=== PATIENT | female | born 1945 | race Caucasian/White ===

== ENCOUNTER 2016-12-03 11:40 | Inpatient (IN) | payer MEDICARE, BC ==
[~2016-12-03 11:40] MED LIST: ASPIRIN EC81 MG PO; CALCIUM 500 +1 EA11 PO; FISH OIL 1,0001 CA PO; GLUCOPHAGE500 M3 PO; GLUCOPHAGE500 MG PO; LEVAQUIN750 M1 PO; LEXAPRO20 M2 PO; LISINOPRIL5 MG PO; LOSARTAN-HCTZ1 EAC4 PO; MELOXICAM15 M1 PO; MUCINEX600 M1 PO; NEULASTA6 MG/0.6 M SQ; PREDNISONE10 M1 PO; PROAIR RESPICL90 MCG INH; PROTONIX40 M2 PO
[2016-12-03 12:47] LABS: BASO % 0.1 % (0-2); HCT-HEMATOCRIT 31.4 % (34.0-49.0); HGB-HEMOGLOBIN 10.6 gm/dl (12.0-15.5); IMMATURE GRANULOCYTES ABSOLUTE 0.06 tho/cmm (0-0.03); IMMATURE GRANULOCYTES PERCENT 0.3 % (0-0.3); LYMPH % 62.8 % (20-45); MCH (MEAN CORPUSCULAR HGB) 28.6 pg (28.0-32.0); MCHC MEAN CORPUSCULAR HGB CONC 33.8 % (32.0-36.0); MCV (MEAN CELL VOLUME) 84.6 fl (82.0-96.0); MEAN PLATELET VOLUME 9.3 cmc (9.4-12.4); MONO % 6.5 % (0-12); NEUTROPHIL ABSOLUTE COUNT 5.5 tho/cmm (1.6-8.0); NEUTROPHIL-AUTOMATED 5.5 tho/cmm (1.6-8.0); NEUTROPHILS % 30.3 % (40-80); PLATELET COUNT 89 tho/cmm (150-450); RED BLOOD COUNT 3.71 mil/cmm (4.00-5.20); RED CELL DISTRIBUTION WIDTH 15.2 % (12.4-16.4); WHITE BLOOD COUNT 18.3 tho/cmm (4.0-10.0)
[2016-12-03 12:57] LABS: LYMPH ABSOLUTE COUNT 11.5 tho/cmm (0.8-4.5); MONOCYTE ABSOLUTE COUNT 1.2 tho/cmm (0.0-1.2)
[2016-12-03 13:00] LABS: ANION GAP 17 mmol/L (0-20); BLOOD UREA NITROGEN 23 mg/dl (6-24); CALCIUM 8.6 mg/dl (8.5-10.5); CARBON DIOXIDE-VENOUS 21 mmol/L (22-32); CHLORIDE 102 mmol/l (96-110); CREATININE 1.29 mg/dl (0.50-1.10); GLUCOSE 211 mg/dL (70-110); POTASSIUM 3.8 mmol/L (3.7-5.1); SODIUM 136 mmol/L (135-145); eGFR VALUE FOR BLACK 48 mL/Min
[2016-12-03 13:38] LABS: URINE BILIRUBIN NEGATIVE (NEG); URINE BLOOD LARGE (NEG); URINE GLUCOSE (UA) NEGATIVE (NEG); URINE KETONE NEGATIVE (NEG); URINE LEUKOCYTE ESTERASE NEGATIVE (NEG); URINE NITRITE NEGATIVE (NEG); URINE PROTEIN MODERATE (NEG); URINE SPECIFIC GRAVITY 1.025 (1.003-1.030)
[2016-12-03 13:39] LABS: URINE APPEARANCE CLEAR; URINE COLOR DARK YELLOW
[2016-12-03 13:47] LABS: URINE BACTERIA 1+; URINE WBC 0-2 /[HPF] (0-5)
[2016-12-03 17:35] LABS: INR 1.7 INR (0.9-1.1); PROTHROMBIN TIME 19.8 SECONDS (9.0-13.6)
[2016-12-03 21:51] LABS: INR 1.6 INR (0.9-1.1); PROTHROMBIN TIME 19.1 SECONDS (9.0-13.6)
[2016-12-04 03:44] LABS: INR 1.4 INR (0.9-1.1)
[2016-12-04 09:30] LABS: BASO % 0.1 % (0-2); EOS % 0.3 % (0-7); HCT-HEMATOCRIT 28.5 % (34.0-49.0); HGB-HEMOGLOBIN 9.1 gm/dl (12.0-15.5); LYMPH % 65.7 % (20-45); MCH (MEAN CORPUSCULAR HGB) 27.7 pg (28.0-32.0); MCHC MEAN CORPUSCULAR HGB CONC 31.9 % (32.0-36.0); MCV (MEAN CELL VOLUME) 86.9 fl (82.0-96.0); MONO % 8.4 % (0-12); NEUTROPHIL ABSOLUTE COUNT 3.6 tho/cmm (1.6-8.0); NEUTROPHIL-AUTOMATED 3.6 tho/cmm (1.6-8.0); NEUTROPHILS % 25.5 % (40-80); PLATELET COUNT 95 tho/cmm (150-450); RED BLOOD COUNT 3.28 mil/cmm (4.00-5.20)
[2016-12-04 09:31] LABS: LYMPH ABSOLUTE COUNT 9.2 tho/cmm (0.8-4.5); MONOCYTE ABSOLUTE COUNT 1.2 tho/cmm (0.0-1.2)
[2016-12-04 09:39] LABS: ANION GAP 12 mmol/L (0-20); BLOOD UREA NITROGEN 16 mg/dl (6-24); CALCIUM 8.1 mg/dl (8.5-10.5); CARBON DIOXIDE-VENOUS 22 mmol/L (22-32); CHLORIDE 111 mmol/l (96-110); CREATININE 0.96 mg/dl (0.50-1.10); GLUCOSE 126 mg/dL (70-110); MAGNESIUM 2.2 mg/dl (1.3-2.6); PHOSPHOROUS 2.2 mg/dl (2.5-4.9); POTASSIUM 3.8 mmol/L (3.7-5.1); SODIUM 141 mmol/L (135-145); eGFR VALUE FOR BLACK 69 mL/Min
[2016-12-04 10:15] LABS: WBC MORPHOLOGY VARIANT LYMPHS
[2016-12-04] MEDS ORDERED: ZOVIRAX200 M1 PO (11:25)
[2016-12-04] MEDS ORDERED: CALCIUM CARBON600 M2 PO (11:25)
[2016-12-04] MEDS ORDERED: PROAIR RESPICL90 MCG INH (11:26)
[2016-12-04] MEDS ORDERED: CALCIUM WITH V1 EAC2 PO (11:26)
[2016-12-05 06:18] LABS: BASO % 0.1 % (0-2); EOS % 0.7 % (0-7); HCT-HEMATOCRIT 29.7 % (34.0-49.0); HGB-HEMOGLOBIN 9.6 gm/dl (12.0-15.5); IMMATURE GRANULOCYTES ABSOLUTE 0.02 tho/cmm (0-0.03); IMMATURE GRANULOCYTES PERCENT 0.2 % (0-0.3); LYMPH % 67.7 % (20-45); MCH (MEAN CORPUSCULAR HGB) 27.7 pg (28.0-32.0); MCHC MEAN CORPUSCULAR HGB CONC 32.3 % (32.0-36.0); MCV (MEAN CELL VOLUME) 85.6 fl (82.0-96.0); MEAN PLATELET VOLUME 9.7 cmc (9.4-12.4); MONO % 7.4 % (0-12); NEUTROPHIL ABSOLUTE COUNT 2.6 tho/cmm (1.6-8.0); NEUTROPHIL-AUTOMATED 2.6 tho/cmm (1.6-8.0); NEUTROPHILS % 23.9 % (40-80); PLATELET COUNT 96 tho/cmm (150-450); RED BLOOD COUNT 3.47 mil/cmm (4.00-5.20); RED CELL DISTRIBUTION WIDTH 15.5 % (12.4-16.4); WHITE BLOOD COUNT 10.7 tho/cmm (4.0-10.0)
[2016-12-05 06:20] LABS: ANION GAP 15 mmol/L (0-20); BLOOD UREA NITROGEN 17 mg/dl (6-24); CALCIUM 8.4 mg/dl (8.5-10.5); CARBON DIOXIDE-VENOUS 21 mmol/L (22-32); CHLORIDE 109 mmol/l (96-110); CREATININE 0.96 mg/dl (0.50-1.10); GLUCOSE 143 mg/dL (70-110); POTASSIUM 3.7 mmol/L (3.7-5.1); SODIUM 141 mmol/L (135-145); eGFR VALUE FOR BLACK 69 mL/Min
[2016-12-05 06:32] LABS: EOSINOPHIL ABSOLUTE COUNT 0.1 tho/cmm (0.0-0.7); LYMPH ABSOLUTE COUNT 7.2 tho/cmm (0.8-4.5); MONOCYTE ABSOLUTE COUNT 0.8 tho/cmm (0.0-1.2)
[2016-12-05 08:37] LABS: WBC MORPHOLOGY VARIANT LYMPHS
[2016-12-06 04:37] LABS: BASO % 0.1 % (0-2); EOS % 1.5 % (0-7); EOSINOPHIL ABSOLUTE COUNT 0.1 tho/cmm (0.0-0.7); HCT-HEMATOCRIT 27.1 % (34.0-49.0); HGB-HEMOGLOBIN 8.5 gm/dl (12.0-15.5); IMMATURE GRANULOCYTES ABSOLUTE 0.03 tho/cmm (0-0.03); IMMATURE GRANULOCYTES PERCENT 0.4 % (0-0.3); LYMPH % 66.2 % (20-45); LYMPH ABSOLUTE COUNT 4.8 tho/cmm (0.8-4.5); MCH (MEAN CORPUSCULAR HGB) 27.3 pg (28.0-32.0); MCHC MEAN CORPUSCULAR HGB CONC 31.4 % (32.0-36.0); MCV (MEAN CELL VOLUME) 87.1 fl (82.0-96.0); MEAN PLATELET VOLUME 9.2 cmc (9.4-12.4); MONO % 9.3 % (0-12); MONOCYTE ABSOLUTE COUNT 0.7 tho/cmm (0.0-1.2); NEUTROPHIL ABSOLUTE COUNT 1.6 tho/cmm (1.6-8.0); NEUTROPHIL-AUTOMATED 1.6 tho/cmm (1.6-8.0); NEUTROPHILS % 22.5 % (40-80); PLATELET COUNT 93 tho/cmm (150-450); RED BLOOD COUNT 3.11 mil/cmm (4.00-5.20); RED CELL DISTRIBUTION WIDTH 15.6 % (12.4-16.4); WHITE BLOOD COUNT 7.3 tho/cmm (4.0-10.0)
[2016-12-06 04:43] LABS: ANION GAP 11 mmol/L (0-20); BLOOD UREA NITROGEN 21 mg/dl (6-24); CALCIUM 8.5 mg/dl (8.5-10.5); CARBON DIOXIDE-VENOUS 24 mmol/L (22-32); CHLORIDE 109 mmol/l (96-110); CREATININE 1.17 mg/dl (0.50-1.10); GLUCOSE 119 mg/dL (70-110); POTASSIUM 4.1 mmol/L (3.7-5.1); SODIUM 140 mmol/L (135-145); eGFR VALUE FOR BLACK 54 mL/Min
[2016-12-07 03:51] LABS: HCT-HEMATOCRIT 29.5 % (34.0-49.0); HGB-HEMOGLOBIN 9.6 gm/dl (12.0-15.5); MCH (MEAN CORPUSCULAR HGB) 27.6 pg (28.0-32.0); MCHC MEAN CORPUSCULAR HGB CONC 32.5 % (32.0-36.0); MCV (MEAN CELL VOLUME) 84.8 fl (82.0-96.0); MEAN PLATELET VOLUME 9.7 cmc (9.4-12.4); PLATELET COUNT 122 tho/cmm (150-450); RED BLOOD COUNT 3.48 mil/cmm (4.00-5.20)
[2016-12-07 03:57] LABS: ANION GAP 15 mmol/L (0-20); BLOOD UREA NITROGEN 19 mg/dl (6-24); CALCIUM 8.9 mg/dl (8.5-10.5); CARBON DIOXIDE-VENOUS 21 mmol/L (22-32); CHLORIDE 108 mmol/l (96-110); CREATININE 0.91 mg/dl (0.50-1.10); POTASSIUM 3.9 mmol/L (3.7-5.1); SODIUM 140 mmol/L (135-145); eGFR VALUE FOR BLACK 74 mL/Min
[2016-12-07 04:00] LABS: WHITE BLOOD COUNT 13.7 tho/cmm (4.0-10.0)
[2016-12-07 04:13] LABS: GLUCOSE 202 mg/dL (70-110)
[2016-12-07 07:06] LABS: BAND % 1 % (0-20); BAND ABSOLUTE COUNT 0.1 tho/cmm (0-2.0)
[2016-12-07] MEDS ORDERED: LEVAQUIN750 M1 PO (08:37)
[2016-12-07] MEDS ORDERED: XARELTO20 M1 PO (08:40)
[2016-12-07] MEDS ORDERED: ROBITUSSIN COU1 EACH PO (08:43)
[2016-12-07] MEDS ORDERED: MUCINEX600 M1 PO (08:44)
[2016-12-07] MEDS ORDERED: LIDODERM1 EACH TOP (08:48)
[2016-12-07] MEDS ORDERED: PERCOCET 5-3251 EACH PO (10:22)
[2016-12-07] MEDS ORDERED: MIRALAX17 G2 PO (10:23)
[2016-12-07] MEDS ORDERED: DELTASONE20 MG PO (10:25)
[2017-02-10] MEDS ORDERED: LOVENOX IM (13:03)
[2017-02-10] MEDS ORDERED: CPAP (13:04)
[2017-02-10] MEDS ORDERED: LOTRIMIN AF12 GM TP (13:07)
[2017-03-16] MEDS ORDERED: VESICARE5 M1 PO (15:30)
[2017-03-16] MEDS ORDERED: TYLENOL325 M2 PO (15:54)
[2017-03-18] MEDS ORDERED: LEVAQUIN750 M1 PO (14:28)
== END 2016-12-07 12:30 | DRG 176 ==
LOC: EDMED 11:40 → EMR2 17:28 → PCUB 12-04 17:14
PROVIDERS: Emergency Medicine; Hospitalist; Internal Medicine; Internal Medicine Critical Care Medicine; ADMIT Hospitalist
DX: I26.99 Other pulmonary embolism without acute cor pulmonale (principal); N17.9 Acute kidney failure, unspecified; R04.2 Hemoptysis; E11.9 Type 2 diabetes mellitus without complications; C91.11 Chronic lymphocytic leukemia of B-cell type in remission; I10 Essential (primary) hypertension; J40 Bronchitis, not specified as acute or chronic; F32.9 Major depressive disorder, single episode, unspecified; Z90.49 Acquired absence of other specified parts of digestive tract; Z87.891 Personal history of nicotine dependence; Z80.8 Family history of malignant neoplasm of other organs or systems; Z88.0 Allergy status to penicillin
CPT/HCPCS: G8987-GO-CH; G8988-GO-CH; G8989-GO-CH; J1644; J1650; J1815; J1956; J2270; J2930; J7030; Q9967

== ENCOUNTER 2017-02-12 05:39 | Inpatient (IN) | payer MEDICARE, BC ==
[~2017-02-12 05:39] MED LIST changes: +CALCIUM CARBON600 M2 PO; +CALCIUM WITH V1 EAC2 PO; +CPAP; +DELTASONE20 MG PO; +LIDODERM1 EACH TOP; +LOTRIMIN AF12 GM TP; +LOVENOX IM; +MIRALAX17 G2 PO; +PERCOCET 5-3251 EACH PO; +ROBITUSSIN COU1 EACH PO; +XARELTO20 M1 PO; +ZOVIRAX200 M1 PO
[2017-02-12 06:43] LABS: INR 1.2 INR (0.9-1.1); PROTHROMBIN TIME 13.7 SECONDS (9.0-13.6)
[2017-02-12 15:42] LABS: HCT-HEMATOCRIT 29.9 % (34.0-49.0); HGB-HEMOGLOBIN 9.6 gm/dl (12.0-15.5); MCV (MEAN CELL VOLUME) 89.5 fl (82.0-96.0); RED CELL DISTRIBUTION WIDTH 17.2 % (12.4-16.4)
[2017-02-12 22:31] LABS: INR 1.3 INR (0.9-1.1); PROTHROMBIN TIME 15.1 SECONDS (9.0-13.6)
[2017-02-13 05:31] LABS: HCT-HEMATOCRIT 27.4 % (34.0-49.0); MCV (MEAN CELL VOLUME) 88.4 fl (82.0-96.0); RED CELL DISTRIBUTION WIDTH 17.2 % (12.4-16.4)
[2017-02-13 05:36] LABS: INR 1.3 INR (0.9-1.1); PROTHROMBIN TIME 15.4 SECONDS (9.0-13.6)
[2017-02-13 05:44] LABS: ANION GAP 13 mmol/L (0-20); BLOOD UREA NITROGEN 20 mg/dl (6-24); CALCIUM 8.6 mg/dl (8.5-10.5); CARBON DIOXIDE-VENOUS 24 mmol/L (22-32); CHLORIDE 104 mmol/l (96-110); CREATININE 1.56 mg/dl (0.50-1.10); GLUCOSE 163 mg/dL (70-110); POTASSIUM 4.5 mmol/L (3.7-5.1); SODIUM 136 mmol/L (135-145); eGFR VALUE FOR BLACK 38 mL/Min
[2017-02-14 05:16] LABS: BASO % 0.1 % (0-2); EOS % 0.3 % (0-7); HCT-HEMATOCRIT 25.8 % (34.0-49.0); HGB-HEMOGLOBIN 8.3 gm/dl (12.0-15.5); IMMATURE GRANULOCYTES ABSOLUTE 0.01 tho/cmm (0-0.03); IMMATURE GRANULOCYTES PERCENT 0.1 % (0-0.3); LYMPH % 74.6 % (20-45); MCH (MEAN CORPUSCULAR HGB) 28.7 pg (28.0-32.0); MCHC MEAN CORPUSCULAR HGB CONC 32.2 % (32.0-36.0); MCV (MEAN CELL VOLUME) 89.3 fl (82.0-96.0); MONO % 4.8 % (0-12); NEUTROPHILS % 20.1 % (40-80); PLATELET COUNT 76 tho/cmm (150-450); RED BLOOD COUNT 2.89 mil/cmm (4.00-5.20); RED CELL DISTRIBUTION WIDTH 17.4 % (12.4-16.4)
[2017-02-14 05:22] LABS: INR 1.3 INR (0.9-1.1)
[2017-02-14 05:31] LABS: LYMPH ABSOLUTE COUNT 7.4 tho/cmm (0.8-4.5); MONOCYTE ABSOLUTE COUNT 0.5 tho/cmm (0.0-1.2)
[2017-02-14 05:31] LABS: ANION GAP 13 mmol/L (0-20); BLOOD UREA NITROGEN 21 mg/dl (6-24); CALCIUM 8.5 mg/dl (8.5-10.5); CARBON DIOXIDE-VENOUS 24 mmol/L (22-32); CHLORIDE 106 mmol/l (96-110); CREATININE 1.75 mg/dl (0.50-1.10); GLUCOSE 139 mg/dL (70-110); POTASSIUM 4.7 mmol/L (3.7-5.1); SODIUM 138 mmol/L (135-145); eGFR VALUE FOR BLACK 33 mL/Min
[2017-02-14 07:21] LABS: WBC MORPHOLOGY VARIANT LYMPHS
[2017-02-14 16:05] LABS: HCT-HEMATOCRIT 28.1 % (34.0-49.0); MCV (MEAN CELL VOLUME) 89.2 fl (82.0-96.0); RED CELL DISTRIBUTION WIDTH 17.3 % (12.4-16.4)
[2017-02-15 05:22] LABS: HCT-HEMATOCRIT 26.4 % (34.0-49.0); HGB-HEMOGLOBIN 8.6 gm/dl (12.0-15.5); INR 1.2 INR (0.9-1.1); PROTHROMBIN TIME 14.1 SECONDS (9.0-13.6); RED CELL DISTRIBUTION WIDTH 17.2 % (12.4-16.4)
[2017-02-15 05:33] LABS: ANION GAP 11 mmol/L (0-20); BLOOD UREA NITROGEN 22 mg/dl (6-24); CARBON DIOXIDE-VENOUS 25 mmol/L (22-32); CHLORIDE 104 mmol/l (96-110); CREATININE 1.73 mg/dl (0.50-1.10); GLUCOSE 128 mg/dL (70-110); POTASSIUM 4.2 mmol/L (3.7-5.1); SODIUM 136 mmol/L (135-145); eGFR VALUE FOR BLACK 34 mL/Min
[2017-02-16 05:10] LABS: MCV (MEAN CELL VOLUME) 89.2 fl (82.0-96.0); RED CELL DISTRIBUTION WIDTH 17.2 % (12.4-16.4)
[2017-02-16 05:11] LABS: PLATELET COUNT 134 tho/cmm (150-450)
[2017-02-16 05:18] LABS: PROTHROMBIN TIME 24.2 SECONDS (9.0-13.6)
[2017-03-16] MEDS ORDERED: VESICARE5 M1 PO (15:30)
[2017-03-16] MEDS ORDERED: TYLENOL325 M2 PO (15:54)
[2017-03-18] MEDS ORDERED: LEVAQUIN750 M1 PO (14:28)
== END 2017-02-16 10:40 | DRG 660 ==
LOC: SHSB 05:39 → ORW 07:38 → PACU 11:15 → 5WE 12:45
PROVIDERS: Anesthesiology; Nurse Practitioner Acute Care; ADMIT Urology
PROC: 0TT00ZZ Resection of Right Kidney, Open Approach (ICD-10-PCS; principal; 2017-02-12)
PROC: 07BC0ZX Excision of Pelvis Lymphatic, Open Approach, Diagnostic (ICD-10-PCS; 2017-02-12)
DX: N28.89 Other specified disorders of kidney and ureter (principal); C91.10 Chronic lymphocytic leukemia of B-cell type not having achieved remission; E11.65 Type 2 diabetes mellitus with hyperglycemia; D69.59 Other secondary thrombocytopenia; J44.9 Chronic obstructive pulmonary disease, unspecified; I10 Essential (primary) hypertension; D64.9 Anemia, unspecified; G47.33 Obstructive sleep apnea (adult) (pediatric); E11.319 Type 2 diabetes mellitus with unspecified diabetic retinopathy without macular edema; Z86.711 Personal history of pulmonary embolism
CPT/HCPCS: J1170; J1650; J1815; J1956; J2250; J3010; J3480